=== PATIENT | male | born 1975 | race Caucasian/White ===

== ENCOUNTER 2023-06-07 15:55 | Emergency (ER) | payer OTHER ==
[2023-06-07 16:02] VITALS: BP 130/86; PULSE 80; RESP 18; TEMP 98; BMI 25.0
[2023-06-07] MEDS: LACTATED RINGERS SOLUTION 1000 ML INFUS.BAG IV ONE (18:22)
[2023-06-07 18:35] LABS: BASO % 0.5 % (0-2.0); EOS % 0.6 % (0-4.5); HEMATOCRIT 44.1 % (35.4-49); HEMOGLOBIN 15.2 GM/dL (11.7-16.9); LYMPH % 21.6 % (8-40); MCH 32.2 pg (25.7-33.7); MCHC 34.4 g/dl (32.0-35.9); MEAN CELL VOLUME 93.7 fl (80-96); MEAN PLT VOLUME 7.1 fl (7.5-11.1); MONO % 6.3 % (3.8-10.2); PLATELET COUNT 245 10^3/uL (134-434); RBC 4.71 M/mm3 (4.00-5.60); RDW 14.2 % (11.9-15.9)
[2023-06-07 18:50] LABS: VENOUS BASE EXCESS 0.5 mmol/L (-2-2); VENOUS O2 SATURATION 91.3 % (70-80); VENOUS PCO2 42.2 mmHg (38-52); VENOUS PH 7.399 (7.310-7.410)
[2023-06-07 18:58] LABS: CALCIUM 9.3 mg/dL (8.5-10.1)
[2023-06-07 18:59] LABS: BLOOD UREA NITROGEN 8.7 mg/dL (7-18)
[2023-06-07 19:01] LABS: CREATININE 0.9 mg/dL (0.55-1.3)
[2023-06-07 19:03] LABS: BILIRUBIN,TOTAL 0.7 mg/dL (0.2-1); TOT PROT 7.2 g/dl (6.4-8.2)
== END 2023-06-07 20:06 | disposition home or self-care (01) ==
LOC: JER 15:55
DX: R42 Dizziness and giddiness (principal); R74.01 Elevation of levels of liver transaminase levels; R20.2 Paresthesia of skin; Z20.822 Contact with and (suspected) exposure to COVID-19
CPT/HCPCS: 0241U-QW; 36415; 71045-TC-FY; 80053; 82803; 84484; 85025; 93005; 93010; 99285-25

== ENCOUNTER 2023-12-31 14:32 | Emergency (ER) | payer OTHER ==
[2023-12-31 14:39] VITALS: BP 138/88; PULSE 93; RESP 18; TEMP 98.4; BMI 24.3
[2023-12-31] MEDS ORDERED: KETOROLAC TROMETHAMINE 30 MG/1 ML VIAL IM ONE (15:58)
[2023-12-31] MEDS ORDERED: IBUPROFEN 400 MG TABLET (FP) PO ONE (16:04)
[2023-12-31] MEDS: IBUPROFEN 400 MG TABLET (FP) PO ONE (16:07)
== END 2023-12-31 16:10 | disposition home or self-care (01) ==
LOC: JER 14:32
DX: M79.662 Pain in left lower leg (principal); X50.1XXA Overexertion from prolonged static or awkward postures, initial encounter
CPT/HCPCS: 99283-25